=== PATIENT | male | born 1935 | race Caucasian/White ===

== ENCOUNTER 2018-09-01 15:39 | Inpatient (IN) ==
[2018-09-01] MEDS ORDERED: ASPIRIN PO ONE (16:48)
[2018-09-01 17:06] LABS: BASO# 0.01 X1000 (0.0-0.2); BASO% 0.2 % (0.0-0.8); EOS# 0.08 X1000 (0.0-0.7); EOS% 1.2 % (0.0-10.0); HEMATOCRIT 46.7 % (42.0-52.0); HEMOGLOBIN 15.1 g/dL (14.0-18.0); LYMPH# 1.64 X1000 (1.2-3.4); LYMPH% 25.1 % (20.5-51.1); MCH 27.8 PG (27-31); MCHC 32.3 g/dL (33-37); MCV 85.8 FL (81-99); MONO# 0.54 X1000 (0.11-0.59); MONO% 8.3 % (1.7-9.3); MPV 11.9 FL (7.4-10.4); NEUT# 4.27 X1000 (1.4-6.5); NEUT% 65.2 % (42.2-75.2); PLT 189 X1000 (130-400); RBC 5.44 XMIL (4.7-6.1); RDW 15.2 % (11.5-14.5); WBC 6.54 X1000 (4.8-10.8)
[2018-09-01 17:14] LABS: INR 0.96; PROTIME 13.6 Seconds (11.0-16.0)
[2018-09-01 17:15] LABS: PTT 30.5 Seconds (22.3-41.8)
[2018-09-01 17:22] LABS: AGAP 13; ALB/GLOB RATIO 1.3; ALBUMIN 3.5 g/dL (3.5-5.0); ALKALINE PHOSPHATASE 135 U/L (32-122); BUN 18 mg/dL (8-22); CALCIUM 8.9 mg/dL (8.8-10.2); CHLORIDE 104 mmol/L (98-107); CK PROFILE 20 U/L (24-204); COSMO 288; CREATININE 1.1 mg/dL (0.7-1.2); ESTIMATED GFR > 60; GLUCOSE 155 mg/dL (70-104); GOT 10 U/L (10-34); GPT 8 U/L (10-44); POTASSIUM 3.8 mmol/L (3.5-5.1); SODIUM 142 mmol/L (136-145); TCO2 25 mmol/L (25-35); TOTAL BILIRUBIN 0.57 mg/dL (0.20-1.00); TOTAL PROTEIN 6.1 g/dL (6.3-8.3)
[2018-09-01] MEDS ORDERED: LASIX IV ONE (17:46)
--- NOTE | 2018-09-01 17:55 | PROVIDER DOCUMENTATION ---
This chart was entered by Megan Phelps Scribe, acting as scribe for Ashley Mercado MD. HPI-Chest Pain - General Stated Complaint: CHEST PAIN Time Seen by Provider: 09/01/18 15:42 Source: patient Allergies/Adverse Reactions: Patient Allergies Allergy/AdvReac Type Severity Reaction Status Date / Time clopidogrel bisulfate * Allergy Mild SWELLING Verified 08/13/18 15:37 [From Plavix] ticlopidine HCl * Allergy Unknown Unknown Verified 08/13/18 15:37 [From Ticlid] isosorbide [From Imdur] AdvReac Severe Unknown Verified 08/13/18 15:37 Home Medications: Home Medication List Medication Instructions Recorded Confirmed Last Taken Type ATORVAstatin [Lipitor] 80 mg PO QHS 01/18/18 09/01/18 06/05/18 21:00 History Carvedilol [Coreg] 1 tab PO BID 01/18/18 09/01/18 06/07/18 09:00 History Fenofibrate [Tricor] 48 mg PO DAILY 08/14/18 09/01/18 Unknown History Aspirin 81 mg PO DAILY #90 chewtab 08/17/18 09/01/18 Unknown Rx Escitalopram [Lexapro] 10 mg PO QAM #90 tab 08/17/18 09/01/18 Unknown Rx Furosemide [Lasix] 40 mg PO DAILY #90 tab 08/17/18 09/01/18 Unknown Rx Losartan [Cozaar] 25 mg PO HS #90 tab 08/17/18 09/01/18 Unknown Rx - History of Present Illness-CP Nature of Presenting Problem: Patient is a 82 year old male who presents to the ED via EMS with right side chest pain. Patient states chest pain started prior to arrival. Patient also states right arm numbness. Patient does not report shortness of breath. Patient states having a CABG 10 years ago. Patient states mild nausea. Location: reports: other (right side) Chest Pain Radiation: reports: no radiation Quality of Pain: reports: aching Severity in ED: mild Onset/Duration: just prior to arrival Timing: gone now Context/Activities at Onset: reports: light activity Modifying Factors: improves with: nothing Associated Symptoms: reports: nausea Similar Symptoms Previously?: No Recently Seen Here or By Another Healthcare Provider: No Review of Systems - Adult - REVIEW OF SYSTEMS - ADULT Constitutional: reports: no symptoms reported Eyes: reports: no symptoms reported Ears, Nose, Mouth & Throat: reports: no symptoms reported Cardiovascular: reports: chest pain. denies: heart murmur, palpitations Respiratory: reports: no symptoms reported Gastrointestinal: reports: nausea. denies: abdominal pain, diarrhea, vomiting Genitourinary: reports: no symptoms reported Musculoskeletal: reports: no symptoms reported Integumentary: reports: no symptoms reported Neurological: reports: numbness (right arm). denies: dizziness/vertigo, headache/migraines, seizure, syncope Psychiatric: reports: no symptoms reported Endocrine: reports: no symptoms reported Hematologic/Lymphatic: reports: no symptoms reported Allergic/Immunologic: reports: no symptoms reported All Other Systems: Reviewed and Negative Past History - Adult - PAST MEDICAL HISTORY-ADULT Review of Records: reports: Nursing Assessment Review, Medications Reviewed, Social history reviewed & non-contributory. Major Childhood Illnesses: reports: denies history Cardiovascular: reports: CAD, CHF, HTN, hyperlipidemia, DE Respiratory: reports: sleep apnea Gastrointestinal: reports: GERD Obstetrical/Gynecological: reports: denies history Genitourinary: reports: denies history Musculoskeletal: reports: denies history Neurological: reports: dementia Psychiatric: reports: denies history Endocrine/Immune: reports: denies history Other Conditions: reports: denies history - PRIOR SURGERIES/PROCEDURES Surgical/Procedure History: reports: reviewed, not pertinent, appendectomy, CABG , cardiac stent - PRIOR HOSPITALIZATIONS Prior Hospitalizations: reports: none - IMMUNIZATION STATUS Childhood Immunizations: NUTD, See Nurse Assessment Flu Vaccine: See Nurse Assessment - FAMILY HISTORY Family History: reviewed, not pertinent - SOCIAL HISTORY Smoking: cigarettes (former) Substance Use: denies Physical Exam-General - PHYSICAL EXAM-ADULT Initial Vital Signs Reviewed: Yes - CONSTITUTIONAL General Appearance: alert, no apparent distress - HEAD, EARS, NOSE, MOUTH & THROAT HENMT: normal ENT inspection - NECK Neck: normal inspection - RESPIRATORY Respiratory: chest non-tender, lungs clear, normal breath sounds - CARDIOVASCULAR Cardiovascular: normal peripheral pulses, regular rate, rhythm - GASTROINTESTINAL (ABDOMEN) Abdominal Exam: normal bowel sounds, non tender, soft - MUSCULOSKELETAL Extremity: non-tender, normal inspection - SKIN Integumentary: normal color, normal turgor, warm/dry - NEUROLOGIC Neurologic: grossly normal - PSYCHIATRIC Psych/Mental Status: normal mood/affect, oriented x 3 Progress - PLAN OF CARE/RESULTS Progress/Plan/Lab Results: Vital Signs - 8 hr 09/01/18 15:52 09/01/18 15:55 09/01/18 16:00 Temperature Pulse Rate 85 86 Respiratory Rate 15 16 Blood Pressure 104/83 O2 Sat by Pulse Oximetry 76 L 96 94 L 09/01/18 16:02 09/01/18 16:06 09/01/18 16:10 Temperature 98.4 F Pulse Rate 88 85 78 Respiratory Rate 26 H 16 23 Blood Pressure 112/77 104/83 O2 Sat by Pulse Oximetry 95 96 95 09/01/18 16:12 09/01/18 16:20 09/01/18 16:23 Temperature Pulse Rate 80 77 75 Respiratory Rate 21 15 25 H Blood Pressure 118/75 125/81 O2 Sat by Pulse Oximetry 95 93 L 94 L 09/01/18 16:32 09/01/18 16:42 09/01/18 16:52 Temperature Pulse Rate 77 77 81 Respiratory Rate 19 20 18 Blood Pressure 115/76 110/73 120/81 O2 Sat by Pulse Oximetry 95 94 L 95 09/01/18 17:02 09/01/18 17:12 09/01/18 17:32 Temperature Pulse Rate 81 85 87 Respiratory Rate 22 19 18 Blood Pressure 112/79 129/75 106/86 O2 Sat by Pulse Oximetry 94 L 93 L 96 Laboratory Results - last 24 hr 09/01/18 09/01/18 09/01/18 16:00 16:00 16:00 WBC 6.54 RBC 5.44 Hgb 15.1 Hct 46.7 MCV 85.8 MCH 27.8 MCHC 32.3 L RDW Std Deviation 15.2 H Plt Count 189 MPV 11.9 H Immature Gran % (Auto) 0.0 Neut % (Auto) 65.2 Lymph % (Auto) 25.1 [place] % (Auto) 8.3 Eos % (Auto) 1.2 Baso % (Auto) 0.2 Immature Gran # (Auto) 0.00 Neut # (Auto) 4.27 Lymph # (Auto) 1.64 [place] # (Auto) 0.54 Eos # (Auto) 0.08 Baso # (Auto) 0.01 PT INR PTT (Actin FS) Sodium 142 Potassium 3.8 Chloride 104 Carbon Dioxide 25 Anion Gap 13 BUN 18 Creatinine 1.1 Estimated GFR/1.73 m2 > 60 BUN/Creatinine Ratio 16 Glucose 155 H Calculated Osmolality 288 Calcium 8.9 Total Bilirubin 0.57 AST 10 ALT 8 L Alkaline Phosphatase 135 H Creatine Kinase 20 L Troponin T Iwi-F-Slqjmzqmkqs Pept 4173 H Total Protein 6.1 L Albumin 3.5 Globulin 2.6 Albumin/Globulin Ratio 1.3 09/01/18 09/01/18 16:00 16:00 WBC RBC Hgb Hct MCV MCH MCHC RDW Std Deviation Plt Count MPV Immature Gran % (Auto) Neut % (Auto) Lymph % (Auto) [place] % (Auto) Eos % (Auto) Baso % (Auto) Immature Gran # (Auto) Neut # (Auto) Lymph # (Auto) [place] # (Auto) Eos # (Auto) Baso # (Auto) PT 13.6 INR 0.96 PTT (Actin FS) 30.5 Sodium Potassium Chloride Carbon Dioxide Anion Gap BUN Creatinine Estimated GFR/1.73 m2 BUN/Creatinine Ratio Glucose Calculated Osmolality Calcium Total Bilirubin AST ALT Alkaline Phosphatase Creatine Kinase Troponin T 0.024 Bef-V-Admcjuefors Pept Total Protein Albumin Globulin Albumin/Globulin Ratio Orders Category Date Time Status Cardiac Monitoring DIRECTED Care 09/01/18 16:48 Active DVT/PE Risk Assess/Protocol [QM] ORDERED Care 09/01/18 18:07 Active Oxygen Therapy- ED Nursing DIRECTED Care 09/01/18 16:48 Active Saline Loc NOW Care 09/01/18 16:48 Active CHEST-2 VIEWS [RAD] Stat Exams 09/01/18 16:48 Taken CBC WITH ELECTRONIC DIFF [HEME] Stat Lab 09/01/18 16:00 Completed CK PROFILE [SP CHEM] Stat Lab 09/01/18 16:00 Completed COMPREHENSIVE METABOLIC PANEL [CHEM] Stat Lab 09/01/18 16:00 Completed PRO B-NATRIURETIC PEPTIDE Stat Lab 09/01/18 16:00 Completed PROTIME WITH INR [COAG] Stat Lab 09/01/18 16:00 Completed PTT [COAG] Stat Lab 09/01/18 16:00 Completed TROPONIN T Stat Lab 09/01/18 16:00 Completed Aspirin Med 09/01/18 16:48 Discontinued 325 mg PO NOW ONE Enoxaparin [Lovenox] Med 09/01/18 18:15 Active 30 mg SUBQ Q24H Furosemide [Lasix] Med 09/01/18 17:46 Discontinued 40 mg IV NOW ONE CP/SOB/Palp >45 yrs of Age Stat Oth 09/01/18 16:48 Ordered EKG [EKG] Stat Ther 09/01/18 16:48 Ordered Transfer/Admit Order [TRANSFER] Routine Transfer 09/01/18 17:57 Ordered Result Diagrams: 09/01/18 16:00 09/01/18 16:00 - EKG 1 Time of EKG reading by physician:: 15:46 EKG Read and Signed by:: Ashley Mercado EKG Interpretation (*Must complete 3 of following elements*): Abnormal (left ventricular hypertrophy with QRS widening and repolarization abnormality.) Rate: 84 Rhythm: sinus rhythm with 1st degree AV block Comments: possible left atrial enlargement; - CONSULTS/PCP/HOSPITALIST Notification #1 *Consult/PCP/Hospitalist*: Dr. Chavez Time Discussed: 16:35 Reason/Comments: Dr. Mercado consulted with Dr. Chavez about patient. Consult Disposition: other (Dr. Chavez states fax EKG.) #2 Consult: Dr. Chavez Time Discussed: 16:44 Reason/Comments: Dr. Mercado consulted with Dr. Chavez about patient. Consult Disposition: other (Dr. Chavez states patient is not having an acute DE and admit patient to hospitalist and he will consult.) #3 Consult: HUMA James for Hospitalist Time Discussed: 17:51 (Dr. Brooks accepted admit) Reason/Comments: Dr. Mercado consulted with Erika about patient. Consult Disposition: Will see in ED, Admit Departure - Departure Date of Disposition Decision: 09/01/18 Time of Disposition Decision: 17:51 DIAGNOSIS: CHF (congestive heart failure), ESRD (end stage renal disease) Disposition: ADMITTED INPATIENT 09 Certified Medical Emergency: Emergent Condition: Stable Referrals and Follow-Ups: Juan Pablo Aguilar MD [Primary Care Provider] - - Critical Care Note This patient required my direct & personal management of CC.: No Attestation - Physician/ YURIY Attestation The physician spent face to face time with patient:: Yes Advanced Practice Provider documentation review:: Supervising physician onsite and consulted in the evaluation and care of this patient. The physician did have a face to face encounter with the patient. This chart was documented by the indicated scribe, (Megan Phelps, Anika) and accurately reflects the services I performed and decisions made by me, Ashley Mercado MD, as attested by the provider's signature.
[2018-09-01] MEDS ORDERED: LOVENOX SUBQ SCH (18:15)
--- NOTE | 2018-09-01 18:34 | Diag Imaging Result Doc PS360 ---
EXAM: CHEST-2 VIEWS - 09/01/2018 HISTORY: cp TECHNIQUE: Chest two views COMPARISON: 08/17/2018 FINDINGS: There is a moderate left pleural effusion which is increased substantially compared to prior. The possibility of underlying atelectasis or consolidation at the left base cannot be excluded. There is a small right pleural effusion. There is no discrete consolidation identified on the right. There is no evidence of pneumothorax. The left heart border is partially obscured the heart size is probably upper normal. IMPRESSION: Moderate left pleural effusion. Underlying atelectasis or consolidation at the left base cannot be excluded. Small right pleural effusion. Electronically signed by Porter Barroso 09/01/2018 6:32 PM
[2018-09-01] MEDS ORDERED: ZOFRAN IV PRN (21:30)
[2018-09-01] MEDS ORDERED: TYLENOL PO PRN (21:30)
[2018-09-01] MEDS: HUMALOG SUBQ SCH (22:15)
[2018-09-01] MEDS: PROTONIX IV SCH (22:23)
[2018-09-01] MEDS: COREG PO SCH (22:23)
[2018-09-01] MEDS: SODIUM CHLORIDE 0.9% INJ SCH (22:23)
[2018-09-01] MEDS: COZAAR PO SCH (22:23)
[2018-09-01] MEDS: LIPITOR PO SCH (22:24)
--- NOTE | 2018-09-01 23:11 | HISTORY AND PHYSICAL ---
PRIMARY CARE PHYSICIAN: Dr. Juan Pablo Aguilar. CHIEF COMPLAINT: Right-sided chest pain, with right-sided numbness. HISTORY OF PRESENT ILLNESS: Mr. Ferrara is an 82-year-old male, well- known to our service, with a history of ischemic cardiomyopathy, coronary artery disease, congestive heart failure, type 2 diabetes, recently admitted with chest pain, with elevated troponins, likely due to jkjyb-uf-dlhwxgl systolic heart failure. He did have bilateral pleural effusions, left greater than right. He did have a thoracentesis on the left side, where they removed 1.6 L of fluid. He was discharged home on p.o. Lasix and spironolactone, as well as losartan. Unfortunately, the patient has dementia, and even after educating the family, they did not get his medications filled. His son Bill came in from out of town from [place] this past . They got his medications filled on Saturday. He has been taking the correct medications now for about 3 days. He has been a little short of breath, as well as having some weakness. He continues to live alone, despite urging that the patient needed more assistance at home on his previous discharge. Today, he started having some right-sided chest pressure, again along with right-sided arm numbness. That completely subsided. In the ED, a chest x-ray showed a vmadnhqq-sa-cczzv pleural effusion on the left, and a small pleural effusion on the right. He was given a dose of IV Lasix, and found to have a proBNP of 4173. Troponin was 0.024. No white count. Afebrile. Vital signs stable. He will be admitted to the medical telemetry floor. We will continue with IV Lasix and p.o. spironolactone, with a Cardiology consult, as well as Settlement Worker and Palliative Care, as the son is involved with care for disease progression, and possibly rehab versus [facility] care. PAST MEDICAL HISTORY: Ischemic cardiomyopathy, coronary artery disease, status post non STEMI, likely secondary to jbuhy-ib-pjhejcl systolic heart failure, as last EF was 20% , PVD, hyperlipidemia, hypertension, type 2 diabetes, obstructive sleep apnea, abdominal aortic aneurysm status post repair. PAST SURGICAL HISTORY: AAA repair, appendectomy, tonsillectomy, vasectomy, left shoulder arthroplasty, CABG, coronary stents x2, femoral-popliteal bypass. SOCIAL HISTORY: He lives alone. He quit smoking and drinking some time ago. No current tobacco, alcohol, or drug use. FAMILY HISTORY: Noncontributory. REVIEW OF SYSTEMS: A 14-point review of systems completely negative, except for those mentioned in the HPI. ALLERGIES: Plavix and Ticlid, as well as isosorbide. HOME MEDICATIONS: As per last discharge: 1. Fenofibrate 48 mg p.o. daily. 2. Lipitor 80 mg p.o. at bedtime. 3. Carvedilol 6.25 mg p.o. b.i.d. 4. Losartan 25 mg p.o. at bedtime. 5. Lasix 40 mg p.o. daily . 6. Lexapro 10 mg p.o. q.a.m. 7. Aspirin 81 mg p.o. daily. 8. Spironolactone 25 mg p.o. daily. PHYSICAL EXAMINATION: VITAL SIGNS: Temperature was 98.4 degrees, heart rate 81, blood pressure 123/ 76 ,O2 was 97% on 2 L nasal cannula. GENERAL: Mr. Ferrara is an 82-year-old male who is sitting up in the stretcher in no acute distress. HEENT: Atraumatic, normocephalic. LANCE. Trachea midline. No JVD. CV: S1, S2 appreciated. Regular rate and rhythm. No murmurs, gallops, or rubs. PULMONARY: Bilateral breath sounds. He is diminished at the bases. GI: Soft, nontender, nondistended. Positive bowel sounds in 4 quadrants. EXTREMITIES: Negative for edema. NEURO: no focal deficits noted. DIAGNOSTIC DATA: Chest x-ray: Moderate left pleural effusions, underlying atelectasis or consolidation of the left base cannot be excluded. Small right pleural effusion. LABORATORY DATA: White count 6, H H 15 and 46, platelet count is 189,000. Sodium 142, potassium 3.8, BUN 18, creatinine 1.1, blood glucose 155. Alkaline phosphatase 135. CK 20, troponin 0.024. ProBNP is 4173. ASSESSMENT AND PLAN: 1. Dapcv-sk-vdhfsnm systolic heart failure. Last ejection fraction was 30%. We will continue with IV diuresis with Lasix, spironolactone, losartan, have Cardiology follow up. Strict I Os, daily weights. Continue to trend his cardiac enzymes. 2. Chest pain, now completely resolved. It was right-sided, with right-sided numbness. Troponins are negative. We will continue to trend. Recheck EKG in the a.m. The first EKG was reviewed by Cardiology. They did not feel that there was any ischemia. 3. Diabetes mellitus type 2. We will continue with patterned blood sugars. He is currently diet- controlled. 4. Hypertension. Continue home medications. 5. Obstructive sleep apnea. 6. Abdominal aortic aneurysm, status post abdominal aortic aneurysm repair. Aware. 7. Mild dementia. 8. Further recommendations to follow physician evaluation, laboratory and diagnostic data. Also, the son Leandro Ferrara, phone number [phone], would like to be contacted by Settlement Worker, as well as Palliative Care. Dictated by HUMA uDffy for Austin Castanon MD Patient seen and examined by me face to face, all the laboratory, images and vitals signs were reviewed, patient presented to the emergency department with right sided chest pain, he was recently discharged from this hospital but as per the son which is at the bedside he did not received treatment for at least 10 days, only for the past 3 days, the patient's son is coming from [place], I explained to him that I had a large conversation with this patient 's daughter in law upon discharge a few days ago, I told her that he has dementia and he can not take care of himself, also that he needs to take his medications as prescribed, since his EF was low we also recommended to follow up really closely with Cardiology department, but now the patient came back to the ED and the discharged instructions were not followed, I personally talked to the son in the ED, he seems to understand, he wants to talk to binder caser and probably palliative care, cardiology will be consulted, his first set of troponin were negative, no big EKG changes, physical exam showed decreases breath sound at the bases, JVD, will get diuretics, and back to home medications, the patient will be placed on telemetry, CIC, close monitoring, agree with the POST PARTUM NURSE's assessment and plan, Austin Neri MD. cc: MD Juan Pablo Edge MD Peter Johnson, MD MTDD
[2018-09-02] MEDS: HUMALOG SUBQ SCH ×4 (06:06→21:11)
--- NOTE | 2018-09-02 07:13 | EKG Report ---
Test Performed on : 09/02/2018 07:09:03 AM Test Reason : Heart Failure Admission Blood Pressure : / mmHG Vent. Rate : 077 BPM Atrial Rate : 077 BPM P-R Int : 244 ms QRS Dur : 120 ms QT Int : 460 ms P-R-T Axes : 072 038 167 degrees QTc Int : 520 ms Sinus rhythm. with 1st degree AV block. with occasional premature ventricular complexes. Possible Left atrial enlargement Left ventricular hypertrophy with QRS widening and repolarization abnormality Abnormal ECG When compared with ECG of 01-SEP-2018 15:46, (Unconfirmed) premature ventricular complexes. are now present Confirmed by Ayaz ODEN, Misael Rodriguez ([id number]) on 09/02/2018 5:07:26 PM
[2018-09-02 07:22] LABS: HEMOGLOBIN 14.6 g/dL (14.0-18.0); MCH 28.1 PG (27-31); MCHC 32.4 g/dL (33-37); MCV 86.5 FL (81-99); MPV 11.7 FL (7.4-10.4); RBC 5.2 XMIL (4.7-6.1); RDW 15.4 % (11.5-14.5); WBC 7.43 X1000 (4.8-10.8)
--- NOTE | 2018-09-02 07:30 | EKG Report ---
Test Performed on : 09/01/2018 3:46:33 PM Test Reason : CP Blood Pressure : / mmHG Vent. Rate : 084 BPM Atrial Rate : 084 BPM P-R Int : 218 ms QRS Dur : 128 ms QT Int : 412 ms P-R-T Axes : 065 032 199 degrees QTc Int : 486 ms Sinus rhythm. with 1st degree AV block. Possible Left atrial enlargement Left ventricular hypertrophy with QRS widening and repolarization abnormality Abnormal ECG When compared with ECG of 01-SEP-2018 15:45, (Unconfirmed) premature ventricular complexes. are no longer present T wave inversion now evident in Inferior leads Unconfirmed Result
[2018-09-02 07:32] LABS: MAGNESIUM 1.7 mg/dL (1.5-2.7); PHOSPHORUS 3.5 mg/dL (2.7-4.5)
[2018-09-02 07:45] LABS: T4 5.98 ug/dL (4.60-12.00); TSH 2.17 uIUmL (0.27-4.20)
[2018-09-02 07:55] LABS: CK INDEX 17.7 (0.0-2.5); CK-MB 154.7 ng/mL (0.0-5.0)
[2018-09-02] MEDS: ASPIRIN PO SCH (09:02)
[2018-09-02] MEDS: TRICOR PO SCH (09:02)
[2018-09-02] MEDS: LEXAPRO PO SCH (09:02)
[2018-09-02] MEDS: COREG PO SCH ×2 (09:02→21:11)
[2018-09-02] MEDS: ALDACTONE PO SCH (09:03)
[2018-09-02] MEDS: LASIX IV SCH ×2 (09:03→21:12)
[2018-09-02] MEDS ORDERED: HEPARIN IV PRN (10:05)
[2018-09-02] MEDS ORDERED: HEPARIN IV ONE (10:05)
[2018-09-02] MEDS ORDERED: PLAVIX PO SCH (10:15)
[2018-09-02] MEDS ORDERED: HEPARIN 25,000 UNITS/D5W 25,000 UNIT/250 ML IV.SOLN IV SCH (10:15)
--- NOTE | 2018-09-02 10:45 | EKG Report ---
Test Performed on : 09/02/2018 10:32:59 AM Test Reason : acute RI Blood Pressure : / mmHG Vent. Rate : 073 BPM Atrial Rate : 073 BPM P-R Int : 200 ms QRS Dur : 124 ms QT Int : 460 ms P-R-T Axes : 066 028 143 degrees QTc Int : 506 ms Normal sinus rhythm. Left atrial enlargement Left ventricular hypertrophy with QRS widening and repolarization abnormality Abnormal ECG When compared with ECG of 02-SEP-2018 07:09, (Unconfirmed) premature ventricular complexes. are no longer present AR interval has decreased Confirmed by Ayaz ODEN, Misael Rodriguez ([id number]) on 09/02/2018 5:24:32 PM
[2018-09-02 11:23] LABS: PTT 31.1 Seconds (22.3-41.8)
--- NOTE | 2018-09-02 11:29 | CARDIOLOGY CONSULTATION ---
DATE: 09/02/2018 CHIEF COMPLAINT: Right-sided chest pain, abnormal cardiac enzymes. HISTORY: Mr. Ferrara is an 82-year-old patient of Dr. Moore who presented to the emergency room yesterday with complaints of sudden onset of pain on the right side of the chest, right arm feeling numb. This was a new symptom which he had not experienced before. Upon presentation, they did an electrocardiogram on him that showed sinus rhythm with a broad complex QRS duration of 128 msec suspicious for left bundle-branch block versus LVH with diffuse repolarization abnormality. Initial CPK measured at 20 units/L. That was done at 4 p.m. Then at 9:45 p.m., the CK went up to 154, and then at 6:55 a.m. today it is up to 872 units. The initial troponin level was 0.024 at 4 p.m., and then at 9 p.m. it was 0.02 which is positive, and this morning at 6:55 a.m. it is 0.814. CK-MB fraction is up to 154.7 in the a.m. blood work from today. EKG done this morning at 7 a.m. shows sinus rhythm with first-degree A-V block, diffuse ST-T abnormality. We have repeated the EKG just moments ago, and there is a diffuse nonspecific ST-T change. The patient states that his chest discomfort has improved. It got better overnight. PAST MEDICAL HISTORY: His past history is really very extensive. We have seen him before in this hospital. He has coronary heart disease. He has had previous myocardial infarction. He carries now a diagnosis of systolic heart failure. His ejection fraction has dropped these past several months. He has been admitted to the hospital several times through the course of 2018 between January 18 and January 21, 2018, then between June 08 and June 11. The last admission was between August 13 and August 17 when he presented with a uwi-SN-egirkkvbt myocardial infarction. The last time decision was made to manage him medically, and he was supposed to arrange for a followup with Dr. Teresa Salazar. He has hypertension, hyperlipidemia, diabetes mellitus type 2, sleep apnea. He has been found to have aortic stenosis, probably a low-flow, low-gradient aortic stenosis. He has abdominal aortic aneurysm. SURGICAL HISTORY: He had double bypass surgery one in 1991 with a vein graft to the marginal branch and mammary artery graft to LAD. He has had stents in 2008. He has had a triple-A repair in 1998. He has had left femoral-popliteal bypass in 1998, appendectomy, cataract extraction, tonsillectomy, skin cancer has been removed. SOCIAL HISTORY: He is a , retired. He has 4 children. However, he only keeps in touch with one of them, the one that lives in [place]. He is not a smoker or drinker. FAMILY HISTORY: Mother had coronary heart disease. HOME MEDICATIONS: From this admission included aspirin 81 daily, atorvastatin 80 at bedtime, Coreg one tablet twice a day, Lexapro 10 mg in the morning, TriCor 48 mg daily, furosemide 40 mg daily, losartan 25 at bedtime. ALLERGIES: Plavix, ticlopidine, isosorbide, Imdur. REVIEW OF SYSTEMS: Decreased functional capacity. Poor memory. The patient has not been compliant with the medications. Apparently, he had not been taking them upon discharge this time from August 17 and just only recently, when his son made it home from [place], he has resumed his medications. The patient denies having any recent stroke, claudication, edema, or significant dyspnea. No cough, no fever, no nausea or vomiting, no flank pain, no hematuria, no diarrhea, no blood in the stools, no hemoptysis. His chest x-ray done yesterday in the ER showed moderate left pleural effusion, underlying atelectasis. Consolidation in the left base cannot be excluded. There is a small right pleural effusion. The time when he was admitted on August 13, they did a chest CT dated August 15 that showed improved right pleural effusion and compressive atelectasis on the left side. PHYSICAL EXAMINATION: Vital signs: Blood pressure 122/76, temperature 97.4, pulse 77, respirations 20. General: He is awake, alert, oriented, in no distress. HEENT: Unremarkable. Chest: Diminished breath sounds especially in the left lung. Cardiac: Heart sounds are regular, rhythmic. Systolic murmur noted 2/6 intensity over the aortic area. Abdomen: Scaphoid, nontender, no masses, no hepatomegaly. Extremities: Showed significant decreased pulses, no peripheral edema. Neurological: Follows commands, moves four extremities. BLOOD WORK: Hemoglobin is 14.6, hematocrit 45%, platelet count 160,000, white cell count 7430. His BUN was 18, creatinine 1.1 yesterday. Sodium 142, potassium 3.8. Magnesium was 1.7. IMPRESSION: 1. Patient presented with chest pain and now he has developed laboratory evidence of a non-ST- elevation myocardial infarction. EKG remains abnormal with nonspecific ST depression. He is not having anymore chest pain at this time. 2. Severe coronary heart disease, previous double bypass surgery, previous stents. 3. Ischemic cardiomyopathy, low ejection fraction, chronic systolic heart failure. 4. Low-flow, low-gradient, aortic stenosis. 5. Diabetes mellitus type 2. 6. Status post abdominal aortic aneurysm repair with peripheral vascular disease status post left xwmvvwq-qeztbuefc-yqrkki bypass. 7. Suspected dementia. RECOMMENDATIONS: At this point in time, we will treat the patient medically. We will put him on IV heparin, aspirin. The patient cannot take Plavix, so we will make the further use of additional antiplatelet agents until he undergoes intervention. He is being moved to ICU. We will arrange for a heart catheterization whenever feasible. A 2-D echocardiogram has been done today. I am going to review that and give further advice. Regarding the aortic stenosis, this is probably a moderate case of aortic stenosis, and more than likely, he is not going to need any intervention for that. Further advice will be forthcoming. cc: Dominic Clark MD
[2018-09-02 14:41] LABS: HEMOGLOBIN A1C 6.3 % (4.8-6.0)
--- NOTE | 2018-09-02 14:48 | PROGRESS NOTE ---
DATE: 09/02/2018 SUBJECTIVE: The patient resting comfortable in bed. OBJECTIVE: Vital Signs: Temperature 97.7 degrees, pulse 87, respirations 18, blood pressure 130/69, oxygen 92%. HEENT: Atraumatic, normocephalic. Cardiovascular System: S1, S2. Respiratory System: Has evidence of good air entry bilaterally. Abdomen: Soft, nontender. No masses felt. Extremities: No evidence of edema. Central Nervous System: No obvious focal deficit noted. LABS: WBC is 7.43, hematocrit is 45, with a platelet count of 160,000. Troponin level is 0.2/0.8. X-ray chest shows a moderate left pleural effusion. Underlying atelectasis or consolidation of the left base cannot be excluded. ASSESSMENT AND PLAN: 1. Non ST elevation myocardial infarction. Continue aspirin, beta candace, heparin. Cardiology following. Check the lipid panel. 2. Acute systolic heart failure. Monitor intake and outputs, as well as daily weights. Continue diuretics. Cardiology following. 3. Diabetes mellitus. Continue blood sugar monitor, as well as sliding scale insulin. Follow up on the HbA1c level. 4. Hypertension. Continue current antihypertensive regimen. 5. Left pleural effusion, with possible underlying consolidation of the left lung base. We will obtain a CT scan of the chest to further evaluate the patient's lung lesion. 6. Deep vein thrombosis prophylaxis. The patient is on heparin. 7. Gastrointestinal prophylaxis. Proton pump inhibitor. cc: Esequiel Mejía MD
[2018-09-02 17:54] LABS: CK INDEX 17.4 (0.0-2.5); CK-MB 174.3 ng/mL (0.0-5.0)
[2018-09-02] MEDS: COZAAR PO SCH (21:10)
[2018-09-02] MEDS: PROTONIX IV SCH (21:12)
[2018-09-02] MEDS: LIPITOR PO SCH (21:12)
--- NOTE | 2018-09-03 01:09 | ECHO REPORT ---
ORDER DATE: 09/01/2018 MEASUREMENTS: Left ventricular end-diastolic diameter 6.1, end systolic diameter 5.4, septal thickness 1.3, posterior wall thickness 1.2, aortic root 3.0, left atrium 5.0. SUMMARY: 1. Adequate quality study. 2. Moderate fibrocalcific changes involving 3 leaflet aortic valve demonstrated with reduced aortic valve leaflet mobility. Peak gradient across the aortic valve is approximately 30 mmHg with a mean gradient of 15 mmHg. Calculated aortic valve area by Doppler is 0.5 cm2 suggesting severe aortic stenosis. There is trace aortic regurgitation. There is focal sclerosis in midportion of posterior mitral leaflet. Mitral valve opening appears adequate. There is hipf-is-dnzuoolk mitral regurgitation. Tricuspid valve is without evidence of structural abnormality with mild tricuspid regurgitation. The estimated systolic PA pressure by Doppler is 65 mmHg suggesting czyapckr-ox-wvpvul pulmonary hypertension. Pulmonic valves is without evidence of structural abnormality. The aortic root is normal in size. 3. Moderate left ventricular enlargement with normal wall thickness suggested on 2-dimensional images. Estimated left ejection fraction is approximately 20% in the setting of severe global hypokinesis. Left atrium is moderately enlarged. The right atrium and right ventricle are grossly normal size with grossly preserved right ventricular systolic function. 4. No pericardial effusion. 5. Appearance of inferior vena cava suggests normal central venous pressure. 6. Left pleural effusion evident. CONCLUSIONS: 1. Severe calcific aortic stenosis with trace aortic regurgitation. 2. Qdcq-su-wyqslqbr mitral regurgitation. 3. Mild tricuspid regurgitation with shplhdkq-cy-fenvdy pulmonary hypertension. 4. Moderate left ventricular enlargement with estimated left ejection fraction of 20%. 5. Moderate left atrial enlargement. 6. Left pleural effusion. cc: Matthew Farris MD
[2018-09-03 01:57] LABS: CK INDEX 13.3 (0.0-2.5); CK-MB 116.9 ng/mL (0.0-5.0)
[2018-09-03 04:26] LABS: BASO# 0.01 X1000 (0.0-0.2); BASO% 0.1 % (0.0-0.8); EOS# 0.02 X1000 (0.0-0.7); EOS% 0.2 % (0.0-10.0); HEMATOCRIT 45.4 % (42.0-52.0); HEMOGLOBIN 14.8 g/dL (14.0-18.0); LYMPH# 1.52 X1000 (1.2-3.4); LYMPH% 17.8 % (20.5-51.1); MCH 27.7 PG (27-31); MCHC 32.6 g/dL (33-37); MCV 84.9 FL (81-99); MONO% 9.4 % (1.7-9.3); MPV 11.6 FL (7.4-10.4); NEUT% 72.5 % (42.2-75.2); PLT 153 X1000 (130-400); RBC 5.35 XMIL (4.7-6.1); RDW 15.1 % (11.5-14.5); WBC 8.55 X1000 (4.8-10.8)
[2018-09-03 05:48] LABS: CK INDEX 12.2 (0.0-2.5); CK-MB 90.54 ng/mL (0.0-5.0)
[2018-09-03] MEDS: HUMALOG SUBQ SCH ×4 (06:30→21:39)
--- NOTE | 2018-09-03 07:26 | EKG Report ---
Test Performed on : 09/03/2018 06:52:08 AM Test Reason : chest pain Blood Pressure : / mmHG Vent. Rate : 070 BPM Atrial Rate : 070 BPM P-R Int : 212 ms QRS Dur : 122 ms QT Int : 470 ms P-R-T Axes : 083 019 162 degrees QTc Int : 507 ms Sinus rhythm. with 1st degree AV block. Left atrial enlargement Left ventricular hypertrophy with QRS widening and repolarization abnormality Abnormal ECG When compared with ECG of 02-SEP-2018 10:32, inferior T wave flattening is new Confirmed by Ayaz ODEN, Misael Rodriguez ([id number]) on 09/06/2018 7:14:32 AM
[2018-09-03] MEDS: TRICOR PO SCH (08:47)
[2018-09-03] MEDS: LASIX IV SCH ×2 (08:47→20:02)
[2018-09-03] MEDS: ALDACTONE PO SCH (08:47)
[2018-09-03] MEDS: COREG PO SCH ×2 (08:47→20:03)
[2018-09-03] MEDS: LEXAPRO PO SCH (08:47)
[2018-09-03] MEDS: ASPIRIN PO SCH (08:47)
--- NOTE | 2018-09-03 08:52 | CARDIOLOGY PROGRESS NOTE ---
DATE: 09/03/2018 CHIEF COMPLAINT: Chest pain. SUBJECTIVE: Mr. Ferrara has had an uneventful night. His chest is not hurting anymore. His enzymes peaked at a total CPK of 1004, total CK-MB fraction at 174.3. Troponin is still going up at 3.470. EKG this morning shows no acute changes. The patient seems to be stable clinically. OBJECTIVE: Vital signs: His blood pressure is 92/61, temperature 98 degrees, pulse 78, respirations 16. General: He is awake, alert, oriented, in no distress. HEENT: Unremarkable. Chest: Diminished breath sounds at bases. Cardiac: Heart sounds are regular and rhythmic. He does have a systolic murmur 2/6 in intensity, aortic area. Abdomen: Nontender. Extremities: Showed decreased pulses, no obvious edema. Neurological: Follows commands, moves four extremities. BLOOD WORK: His PTT is therapeutic. His glucose is 132. Hemoglobin today is 14.8, hematocrit 45.4. IMPRESSION: 1. Patient who presented with an acute myocardial infarction. This is a pob-ZA-ksjuuccij. 2. History of severe coronary heart disease who had past surgery. 3. Ischemic cardiomyopathy, chronic systolic heart failure. 4. Low-flow, low-gradient aortic stenosis. 5. Diabetes mellitus type 2. 6. History of previous abdominal aortic aneurysm repair. RECOMMENDATION: At this point in time, we will continue conservative management. We have him on heparin drip, low-dose beta-candace. He is on aspirin. He cannot take Plavix because of allergy. We will see how he does. We will consider performing a left heart catheterization on him prior to discharge and then decide on revascularization. cc: Dominic Clark MD
--- NOTE | 2018-09-03 11:00 | PROGRESS NOTE ---
DATE: 09/03/2018 SUBJECTIVE: The patient is resting comfortably in bed. Not in any obvious distress. OBJECTIVE: Vital signs: Temperature 97.9 degrees, pulse 73, respirations 23, blood pressure is 102/68, oxygen saturation is 96%. HEENT: Patient is atraumatic, normocephalic. Cardiovascular: S1, S2. Respiratory system: Has evidence of good air entry bilaterally. Abdomen: Soft, nontender. No masses felt. Extremities: No evidence of edema. Central nervous system: No obvious focal deficits noted. LABS: WBC is 8.55, hematocrit is 45.4 with a platelet count of 153,000. Troponin level is 3.47. Lipid panel shows LDL of 145, total cholesterol 180, triglycerides 110, and HDL 29. ASSESSMENT AND PLAN: 1. Pmd-XH-ziipfjbkg myocardial infarction. Continue aspirin, beta-candace, heparin. Maintain patient on a statin. Cardiology following. 2. Acute systolic congestive heart failure. Monitor intakes and outputs, as well as daily weights. Continue diuretics. Cardiology following. 3. Diabetes mellitus. Continue blood sugar monitor as well as sliding scale insulin. 4. Hypertension. Continue current antihypertensive regimen. 5. Left pleural effusion as well as possible underlying consolidation of left lung base. CT scan of the chest requested and currently pending. 6. Deep vein thrombosis prophylaxis. Patient is on heparin. 7. Gastrointestinal prophylaxis. Proton-pump inhibitor. cc: Esequiel Mejía MD
[2018-09-03] MEDS ORDERED: HEPARIN 25,000 UNITS/D5W 25,000 UNIT/250 ML IV.SOLN IV SCH (17:00)
[2018-09-03] MEDS: PROTONIX IV SCH (20:02)
[2018-09-03] MEDS: LIPITOR PO SCH (20:03)
[2018-09-03] MEDS: COZAAR PO SCH (20:03)
[2018-09-03] MEDS: SODIUM CHLORIDE 0.9% INJ SCH (20:04)
[2018-09-04 05:20] LABS: BASO# 0.01 X1000 (0.0-0.2); BASO% 0.1 % (0.0-0.8); EOS# 0.05 X1000 (0.0-0.7); EOS% 0.6 % (0.0-10.0); HEMOGLOBIN 14.3 g/dL (14.0-18.0); LYMPH# 1.66 X1000 (1.2-3.4); LYMPH% 20.1 % (20.5-51.1); MCH 27.7 PG (27-31); MCHC 32.5 g/dL (33-37); MCV 85.1 FL (81-99); MONO% 10.9 % (1.7-9.3); NEUT# 5.63 X1000 (1.4-6.5); NEUT% 68.3 % (42.2-75.2); PLT 166 X1000 (130-400); RBC 5.17 XMIL (4.7-6.1); RDW 15.2 % (11.5-14.5); WBC 8.25 X1000 (4.8-10.8)
[2018-09-04 05:46] LABS: ALB/GLOB RATIO 0.9; ALBUMIN 3.2 g/dL (3.5-5.0); CALCIUM 8.8 mg/dL (8.8-10.2); CREATININE 1.5 mg/dL (0.7-1.2); MAGNESIUM 1.7 mg/dL (1.5-2.7); POTASSIUM 3.3 mmol/L (3.5-5.1); TOTAL BILIRUBIN 0.62 mg/dL (0.20-1.00); TOTAL PROTEIN 6.7 g/dL (6.3-8.3)
[2018-09-04] MEDS ORDERED: LASIX IV SCH (06:00)
[2018-09-04] MEDS: HUMALOG SUBQ SCH ×4 (06:04→21:46)
[2018-09-04 06:48] LABS: CK INDEX 6.9 (0.0-2.5); CK-MB 24.12 ng/mL (0.0-5.0)
[2018-09-04] MEDS: HEPARIN 25,000 UNITS/D5W 25,000 UNIT/250 ML IV.SOLN IV SCH ×2 (07:14→15:50)
[2018-09-04] MEDS ORDERED: POTASSIUM CHLORIDE 20% LIQUID PO ONE (07:52)
--- NOTE | 2018-09-04 08:05 | EKG Report ---
Test Performed on : 09/04/2018 07:14:34 AM Test Reason : [place] Blood Pressure : / mmHG Vent. Rate : 065 BPM Atrial Rate : 065 BPM P-R Int : 216 ms QRS Dur : 134 ms QT Int : 474 ms P-R-T Axes : 077 021 186 degrees QTc Int : 492 ms Sinus rhythm. with 1st degree AV block. Left atrial enlargement Left ventricular hypertrophy with QRS widening and repolarization abnormality Abnormal ECG When compared with ECG of 03-SEP-2018 06:52, (Unconfirmed) No significant change was found Confirmed by Ayaz ODEN, Misael Rodriguez ([id number]) on 09/06/2018 10:16:18 AM
--- NOTE | 2018-09-04 08:29 | Diag Imaging Result Doc PS360 ---
CT THORAX W/O CONTRAST - 09/04/2018 INDICATION: pleural effusion COMPARISON: 08/15/2018 FINDINGS: Stable relatively large left pleural effusion. Stable significant collapse of the left lung mainly the left lower lobe, with some mild atelectasis of the lingula. The airways remain patent. Stable small right pleural effusion. The right lung is clear. Stable cardiomegaly. Stable CABG changes. Stable old subendocardial infarction at the left ventricular apex. Upper abdominal images are normal. There are moderate degenerative changes of the spine. No acute or suspicious bony lesion. IMPRESSION: No change from prior. This exam was performed using automated exposure control, adjustment of mA or kV according to patient size, and/or use of iterative reconstruction technique Electronically signed by Clifotn Stewart 09/04/2018 8:26 AM
[2018-09-04] MEDS: TRICOR PO SCH (08:51)
[2018-09-04] MEDS: ASPIRIN PO SCH (08:51)
[2018-09-04] MEDS: LEXAPRO PO SCH (08:51)
[2018-09-04] MEDS: COREG PO SCH ×2 (08:52→21:43)
[2018-09-04] MEDS: ALDACTONE PO SCH (08:52)
--- NOTE | 2018-09-04 10:03 | CARDIOLOGY PROGRESS NOTE ---
DATE: 09/04/2018 CHIEF COMPLAINT: Chest discomfort. SUBJECTIVE: Mr. Ferrara is feeling better today. His chest discomfort has subsided. He is in good spirits. They have ordered a CT of the chest with contrast today for followup on a pleural effusion. He does not have any further issues. OBJECTIVE: VITAL SIGNS: Blood pressure is 82/62, temperature 97.5 degrees, pulse 65, respirations 18. GENERAL: He is awake, alert, oriented, no distress. HEENT: Unremarkable. CHEST: Shows diminished breath sounds in the left base with dullness to percussion. HEART: Sounds regular and rhythmic. ABDOMEN: Nontender. EXTREMITIES: Shows diminished pulses. No peripheral edema. NEUROLOGICAL: Follows commands. Moves 4 extremities. BLOOD WORK: CPK has gone down to 351, CKMB fraction down to 24.12. Troponin is 4.160. Sodium 141, potassium 3.3, BUN 24, creatinine 1.5. IMPRESSION: 1. Patient who has suffered an acute myocardial infarction, non-ST elevation. His EKG done this morning shows sinus rhythm with a nonspecific ST abnormality in the lateral leads. 2. Ischemic cardiomyopathy, chronic systolic heart failure. 3. Previous cardiac bypass surgery. 4. Kidney dysfunction. 5. Mild hypokalemia. 6. Low flow low grade aortic stenosis. The patient does have a systolic aortic murmur. 7. Status post repair of abdominal aortic aneurysm. 8. Pleural effusion noted. will get CT of chest without contrast to minimize renal injury. RECOMMENDATIONS: At this point in time, we will continue present therapy. He is on heparin. His platelet count today is 166,000 which is normal. Hemoglobin is still normal. Magnesium is 1.7. At this time, we will continue supportive therapy and we will arrange for a left heart catheterization in the morning. The benefits, risks and complications of cardiac catheterization were discussed. Patient needs to be continued on statin therapy. Left pleural effusion to be evaluated with non contrast CT of chest because of renal dysfunction. Further advice will be forthcoming. cc: Dominic Clark MD [facility]
[2018-09-04] MEDS ORDERED: NS 250 ML IV ONE ×2 (13:46→15:17)
[2018-09-04] MEDS ORDERED: ALBUMIN 25% IV ONE ×2 (13:47→15:17)
[2018-09-04] MEDS ORDERED: COZAAR PO SCH (13:47)
[2018-09-04] MEDS ORDERED: ALDACTONE PO SCH (13:49)
--- NOTE | 2018-09-04 14:25 | PROGRESS NOTE ---
DATE: 09/04/2018 SUBJECTIVE: The patient is resting comfortably in bed. Not in any obvious distress. OBJECTIVE: Vital signs are as follows: Temperature 97.4, pulse 53, respiratory 17, blood pressure 91/52, pulse is 96% HEENT: Head atraumatic, normocephalic. Cardiovascular: S1, S2. Respiratory System: Has evidence of good air entry bilaterally. Abdomen is soft, nontender. No masses felt. Extremities: No evidence of edema. Central Nervous System: No obvious focal deficits noted. LABORATORY DATA: WBC 8.2, hematocrit is 44 with a platelet count of 166,000. Sodium is 141, potassium 3.3, chloride 99, bicarb 27. BUN is 24, creatinine 1.5. ASSESSMENT AND PLAN: 1. Rgc-WE-ymmjyofth myocardial infarction/congestive heart failure. Continue current management. Cardiology is following. 2. Diabetes mellitus. Monitor blood sugar levels and maintain patient on sliding scale insulin. 3. Hypertension. Patient's blood pressure is on the low side. We will discontinue all antihypertensive medications, and the patient may require intravenous fluids and all pressors if he remains persistently hypotensive. 4. Left pleural effusion as well as atelectasis, left lung. Consult with Pulmonology. 5. Deep vein thrombosis prophylaxis. The patient is on heparin. 6. Gastrointestinal prophylaxis; on proton pump inhibitor. cc: Esequiel Mejía MD
[2018-09-04] MEDS: MUCOMYST 20% PO SCH ×2 (16:18→21:44)
[2018-09-04] MEDS: SODIUM BICARBONATE 8.4% 150 MEQ in D5W 1,000 ML IV SCH (17:24)
[2018-09-04] MEDS: LASIX IV SCH (17:25)
[2018-09-04] MEDS: LIPITOR PO SCH (21:44)
[2018-09-04] MEDS: PROTONIX IV SCH (21:44)
[2018-09-05] MEDS: LASIX IV SCH (05:37)
[2018-09-05 05:53] LABS: EOS# 0.06 X1000 (0.0-0.7); EOS% 0.9 % (0.0-10.0); LYMPH# 2.13 X1000 (1.2-3.4); LYMPH% 31.4 % (20.5-51.1); MCH 27.8 PG (27-31); MCHC 32.4 g/dL (33-37); MCV 85.6 FL (81-99); MONO# 0.68 X1000 (0.11-0.59); MPV 12.5 FL (7.4-10.4); NEUT# 3.91 X1000 (1.4-6.5); NEUT% 57.7 % (42.2-75.2); PLT 136 X1000 (130-400); RBC 4.32 XMIL (4.7-6.1); RDW 15.1 % (11.5-14.5); WBC 6.78 X1000 (4.8-10.8)
[2018-09-05 07:02] LABS: CALCIUM 8.8 mg/dL (8.8-10.2); CREATININE 1.3 mg/dL (0.7-1.2); MAGNESIUM 1.4 mg/dL (1.5-2.7); POTASSIUM 2.8 mmol/L (3.5-5.1)
[2018-09-05] MEDS ORDERED: MAGNESIUM SULFATE 4 GM/S.W.I. 4 GM/100 ML IVPB IV ONE (07:20)
[2018-09-05] MEDS ORDERED: POTASSIUM CHLORIDE 20% LIQUID PO ONE (07:21)
[2018-09-05] MEDS: HUMALOG SUBQ SCH (07:29)
[2018-09-05] MEDS ORDERED: POTASSIUM CHLORIDE 60 MEQ in NS 500 ML IV SCH (07:30)
[2018-09-05 08:03] VITALS: BP 100/67
--- NOTE | 2018-09-05 08:13 | EKG Report ---
Test Performed on : 09/05/2018 07:24:07 AM Test Reason : [place] Blood Pressure : / mmHG Vent. Rate : 078 BPM Atrial Rate : 078 BPM P-R Int : 214 ms QRS Dur : 132 ms QT Int : 434 ms P-R-T Axes : 082 043 163 degrees QTc Int : 494 ms Sinus rhythm. with 1st degree AV block. Possible Left atrial enlargement Nonspecific intraventricular block Cannot rule out Anterior infarct , age undetermined T wave abnormality, consider lateral ischemia Abnormal ECG When compared with ECG of 04-SEP-2018 07:14, (Unconfirmed) No significant change was found Confirmed by Ayaz ODEN, Misael Rodriguez ([id number]) on 09/06/2018 10:49:13 AM
[2018-09-05] MEDS: SODIUM BICARBONATE 8.4% 150 MEQ in D5W 1,000 ML IV SCH (08:41)
[2018-09-05] MEDS: MUCOMYST 20% PO SCH (08:55)
[2018-09-05] MEDS: LEXAPRO PO SCH (08:58)
[2018-09-05] MEDS: COREG PO SCH (08:58)
[2018-09-05] MEDS: ASPIRIN PO SCH (08:58)
[2018-09-05] MEDS: TRICOR PO SCH (08:58)
[2018-09-05] MEDS: HEPARIN 25,000 UNITS/D5W 25,000 UNIT/250 ML IV.SOLN IV SCH (09:02)
[2018-09-05] MEDS ORDERED: CORDARONE 360 MG/D5W 360 MG/200 ML IV.SOLN IV ONE (10:00)
[2018-09-05] MEDS ORDERED: EPINEPHRINE 4 MG in NS 250 ML IV SCH (10:00)
[2018-09-05] MEDS ORDERED: LR ONE (10:30)
[2018-09-05] MEDS ORDERED: SODIUM BICARBONATE 8.4% ONE (10:30)
[2018-09-05] MEDS ORDERED: EPINEPHRINE SYRINGE ONE (10:30)
[2018-09-05] MEDS ORDERED: CORDARONE ONE (10:30)
--- NOTE | 2018-09-09 03:30 | DISCHARGE SUMMARY ---
ADMISSION DATE: 09/01/2018 DISCHARGE DATE: 09/05/2018 SUMMARY: Mr. Jean Pierre Ferrara is an 82-year-old male who has a history of ischemic cardiomyopathy, coronary artery disease, congestive heart failure, and type 2 diabetes mellitus who presents to the hospital because of right-sided chest pressure as well as right-sided numbness. In the ED, his chest x-ray showed zidlurtv-pr-hxxio pleural effusion on the left as well as a small pleural effusion on the right. He was given a dose of Lasix IV and his proBNP level was found to be raised. Troponin level was also raised. The patient was subsequently diagnosed as having non-ST elevation [place] and was transferred to the cardiac intensive care. The patient was placed on heparin and pending cardiac catheterization. The patient , on 09/05/2018, developed cardiac arrest and ACLS protocol was initiated. During the code, the patient had different rhythms including pulseless ventricular tachycardia, ventricular fibrillation, and also pulseless electrical activity. All of this was managed accordingly based on ACLS protocol. His potassium and magnesium levels were noted to be low and these were being corrected. The code ran for at least 20 minutes but was not successful. The patient's family was aware of development. The patient's certificate will be filled out accordingly. cc: Esequiel Mejía MD MTDD
== END 2018-09-05 09:54 | disposition expired ==
LOC: EDSEX → SUPCPDRO → ED 15:39 → SUATTDRO 20:50 → 3N 20:50 → 3S 09-02 10:52
PROVIDERS: ATTEND Internal Medicine
CPT/HCPCS: 71020; 71046; 71250; 80048; 80053; 80061; 82550; 82553; 82948; 83036; 83721; 83735; 83880; 84100; 84436; 84443; 84484; 85025; 85027; 85610; 85730; 93005; 93010; 93306; 96372; 96374; 99285; A9270; C9113; J0171; J0282; J1644; J1650; J1815; J1940; J3475; J3480; J7040; J7070; J7120; P9047; S0164; XXXXX